=== PATIENT | male | born 1965 | race Caucasian/White ===

== ENCOUNTER → 2023-08-30 | Outpatient (CLI) | payer OTHER ==
--- NOTE | 2023-08-30 12:01 | XR ---
EXAM TYPE: LUMBAR SPINE X RAY SERIES COMPARISON: NONE HISTORY: Pain TECHNIQUE: 4 views are submitted. FINDINGS: Multilevel moderate severe degenerative disc disease most marked at L5-S1 with bilateral spondylolysi s grade 2 anterolisthesis. Wedging of L2 appears chronic. Multilevel foraminal encroachment suspected . IMPRESSION: 1. Multilevel moderate to severe degenerative disc disease most marked at L5-S1 with bilateral spondy lolysis suspected and grade 2 anterolisthesis. Recommend follow-up MRI. 2. Chronic-appearing wedge deformity\fracture L2
== END | disposition home or self-care (01) ==
LOC: RADXRMAIN 10:48
PROVIDERS: ATTEND Family Medicine
DX: M48.56XA Collapsed vertebra, not elsewhere classified, lumbar region, initial encounter for fracture (principal); M51.37 Other intervertebral disc degeneration, lumbosacral region; M47.816 Spondylosis without myelopathy or radiculopathy, lumbar region
CPT/HCPCS: 72110